=== PATIENT | male | born 1985 | race Caucasian/White ===

== ENCOUNTER 2020-01-18 07:19 | Emergency (ER) | payer OTHER ==
[2020-01-18 07:40] VITALS: TEMP 98; BMI 22.8
[2020-01-18] MEDS ORDERED: DEXAMETHASONE LIQUID 0.5 MG/5 ML PO ONE (08:00)
--- NOTE | 2020-01-18 08:02 | PDOC ---
History of Present Illness - General Chief Complaint: Choking Sensation Stated Complaint: THROAT SWELLING Time Seen by Provider: 01/18/20 07:38 History Source: Patient Exam Limitations: No Limitations - History of Present Illness Initial Comments: 01/18/20 08:39 34-year-old male presents to ED with feeling as if something is in his throat upon awakening this morning. Patient states felt his uvula was long and so went to the bathroom and when he opened his mouth to look in the bathroom he began to choke since the uvula pushed forward causing him to gag. Patient states did not vomit and had no difficulty breathing. Patient states immediately swallowed and symptoms resolved. Patient states continues to feel as if something is in his throat but has no other complaints at this time. Patient denies any recent illness, smoking history, autoimmune disorders, or previous history of the same signs and symptoms Is this a multiple visit Asthma Patient?: No Timing/Duration: reports: just prior to arrival Severity: reports: mild, moderate Possible Cause: Yes: no prior episodes Associated Symptoms: reports: other Past History - Travel Traveled outside of the country in the last 30 days: No Close contact w/someone who was outside of country & ill: No - Past Medical History Allergies/Adverse Reactions: Allergies Allergy/AdvReac Type Severity Reaction Status Date / Time No Known Allergies Allergy Verified 06/27/14 12:44 Home Medications: Ambulatory Orders Oxycodone HCl/Acetaminophen [Percocet 5-325 mg Tablet -] 1 tab PO Q6H PRN #8 tablet 06/27/14 COPD: No - Immunization History Td Vaccination: (unknown) Immunization Up to Date: No - Psycho Social/Smoking Cessation Hx Smoking Status: No Smoking History: Never smoked Have you smoked in the past 12 months: No Number of Cigarettes Smoked Daily: 0 Information on smoking cessation initiated: No Hx Alcohol Use: No Drug/Substance Use Hx: No Substance Use Type: None Patient Lives Alone: No Lives with/in: spouse/SO Review of Systems - Review of Systems Able to Perform ROS?: Yes Is the patient limited Setswana proficient: No Constitutional: No: Symptoms Reported HEENTM: Yes: Other Respiratory: No: Symptoms reported Cardiac (ROS): No: Symptoms Reported ABD/GI: No: Nausea Musculoskeletal: No: Symptoms Reported Integumentary: No: Rash Neurological: No: Headache, Dizziness Endocrine: No: Symptoms Reported *Physical Exam - Vital Signs Last Vital Signs Temp Pulse Resp BP Pulse Ox 98.0 F 96 H 18 137/83 99 01/18/20 07:30 01/18/20 07:30 01/18/20 07:30 01/18/20 07:30 01/18/20 07:30 - Physical Exam General Appearance: Yes: Nourished, Appropriately Dressed. No: Apparent Distress HEENT: positive: EOMI, DEMETRIA, Normal Voice, TMs Normal, Other (Uvula midline and elongated. Mild erythema to the soft palate. Tonsillar region intact no exudate no petechiae). negative: Muffled/Hoarse voice Neck: negative: Lymphadenopathy (R), Lymphadenopathy (L) Respiratory/Chest: positive: Lungs Clear, Normal Breath Sounds. negative: Respiratory Distress, Accessory Muscle Use, Stridor, Wheezing Cardiovascular: positive: Regular Rhythm, Regular Rate. negative: Murmur Gastrointestinal/Abdominal: positive: Soft. negative: Tenderness Integumentary: positive: Normal Color, Warm, Moist. negative: Rash Neurologic: positive: Motor Strength 5/5 (Ambulatory) Medical Decision Making - Medical Decision Making 01/18/20 08:22 Chief complaint: Enlarged uvula upon awakening this morning. Patient states did not eat anything out of the ordinary and denies any recent throat infections fever, or smoking history. Exam: Vital signs stable. Speaking full sentences, midline elongated uvula noted with mild erythema surrounding the soft palate. Otherwise normal physical exam. Plan: Rule out strep, treat for possible allergic reaction inflammatory process, and rule out other anatomical disorders/epiglottitis with x-ray 01/18/20 09:08 Laboratory Tests 01/18/20 08:02 Group A Strep Rapid Negative Soft tissue of the neck shows no acute pathology. Patient states symptoms have not worsened and is able to drink water without difficulty. Will give supportive care instructions for uvulitis Discharge - Discharge Information Problems reviewed: Yes Clinical Impression/Diagnosis: Uvulitis Condition: Good Disposition: HOME - Follow up/Referral - Patient Discharge Instructions Patient Printed Discharge Instructions: DI for Uvulitis Additional Instructions: At this time I recommend avoiding abrasive foods. Drink plenty of fluids. The uvula is sometimes swollen due to dry mouth or dehydration, so water is the best medicine. Gargling with warm water and plain table salt can help to soothe a sore throat. Throat lozenges such as eucalyptus cough drops or throat spray can help to numb the pain. Cough drops and throat spray are available to purchase online. Hot tea and honey, or just honey and hot water, can help to soothe a sore throat. Chewing on ice chips may be helpful in reducing swelling. Symptoms should slowly resolve. If symptoms cause difficulty breathing, Inability to swallow, or pain please return back to the emergency room Print Language: SPA - Post Discharge Activity
[2020-01-18] MEDS ORDERED: DEXAMETHASONE SOD PHOSPHATE 10 MG/1 ML VIAL ONE (08:12)
[2020-01-18 09:21] VITALS: BP 135/80; PULSE 90
== END 2020-01-18 09:22 | disposition home or self-care (01) ==
LOC: JER 07:19
DX: K12.2 Cellulitis and abscess of mouth (principal)
CPT/HCPCS: 70360-TC-FY; 87070; 87880; 99284-25